=== PATIENT | male | born 1935 | race Caucasian/White ===

== ENCOUNTER 2016-07-13 12:02 | Inpatient (IN) ==
[2016-07-13] MEDS ORDERED: MORPHINE IM ONE (12:43)
[2016-07-13] MEDS ORDERED: NORFLEX IM ONE (12:43)
--- NOTE | 2016-07-13 14:31 | Diag Imaging Result Document ---
PROCEDURE NAME: HEAD/C-SPINE W/O CONTRAST - 07/13/2016 CT OF THE HEAD WITHOUT CONTRAST: FINDINGS: There is some cerebral and cerebellar atrophy. There is an apparent chronic subdural fluid collection on the left which is asymmetric in comparison with the right side, particularly at the convexities. There are no previous studies available for comparison. The paranasal sinuses are clear. The calvarium appears to be intact. IMPRESSION: Left chronic subdural. CT OF THE CERVICAL SPINE: There is some scarring in the apices and apparently an azygos lobe on the right. There is hypertrophic facet disease present at C7-T1 on the right and disk space narrowing at C6-7 with posterior osteophyte formation. There is no prevertebral soft tissue swelling. IMPRESSION: Degenerative changes. No evidence of acute bony disease.
--- NOTE | 2016-07-13 14:33 | Diag Imaging Result Document ---
PROCEDURE NAME: T-SPINE/L-SPINE W/O CONTRAST - 07/13/2016 CT THORACIC AND LUMBAR SPINE WITHOUT: FINDINGS: There is moderate scoliosis to the thoracic spine. Degenerative bone spurring is found throughout. There are acute compression fractures to the T3 and T6 vertebrae. Small avulsed fragment posteriorly at the C3-4 level. There are at least 50% compression fractures to the T8 and T12 vertebrae. These may not be acute. No pleural effusions. No pneumothoraces. There are multiple old rib fractures. IMPRESSION: 1. Acute fractures with mild compression involving the T3 and T6 vertebra with mild spinal stenosis at T3-T4. 2. Likely old compression fractures to the T8 and T12 vertebrae. 3. Scoliosis with prominent degenerative changes. CT LUMBAR SPINE: FINDINGS: There is good alignment to the lumbar spine. Mild compression fracture to the L1 vertebra. This may be old, but could be acute. There is an acute fracture to the transverse process of the L1 vertebra. No other acute fracture. IMPRESSION: Compression of the L1 vertebra with a fracture involving the right transverse process. A preliminary report was called to Samreen Marrufo in the Emergency Room at 2:05 p.m.. MTDD
[2016-07-13 15:14] LABS: MANUAL DIFF NEEDED? NO
[2016-07-13 15:19] LABS: BASO% 0.1 % (0.0-0.8); EOS# 0.06 X1000 (0.0-0.7); EOS% 0.5 % (0.0-10.0); HEMOGLOBIN 16.1 g/dL (14.0-18.0); IMM GRAN# 0.06 X1000 (0.0-0.04); IMM GRAN% 0.5 % (0.0-0.5); LYMPH# 1.06 X1000 (1.2-3.4); LYMPH% 9.3 % (20.5-51.1); MCH 30.9 PG (27-31); MCHC 34.3 g/dL (33-37); MCV 90.2 FL (81-99); MONO# 1.02 X1000 (0.11-0.59); MPV 9.1 FL (7.4-10.4); NEUT% 80.6 % (42.2-75.2); PLT 189 X1000 (130-400); RBC 5.21 XMIL (4.7-6.1)
[2016-07-13 15:46] LABS: AGAP 13; ALKALINE PHOSPHATASE 58 U/L (32-122); BUN 15 mg/dL (8-22); CALCIUM 9.1 mg/dL (8.8-10.2); CHLORIDE 100 mmol/L (98-107); COSMO 274; GOT 27 U/L (10-34); GPT 22 U/L (10-44); POTASSIUM 4.4 mmol/L (3.5-5.1); SODIUM 137 mmol/L (136-145); TCO2 24 mmol/L (25-35); TOTAL BILIRUBIN 0.82 mg/dL (0.20-1.00); TOTAL PROTEIN 6.5 g/dL (6.3-8.3)
[2016-07-13] MEDS ORDERED: APRESOLINE IV PRN (17:23)
[2016-07-13] MEDS: MORPHINE IV PRN ×2 (17:28→21:35)
--- NOTE | 2016-07-13 17:51 | HISTORY AND PHYSICAL ---
PRIMARY CARE PHYSICIAN: [facility] and [facility]. CHIEF COMPLAINT: Fall with back pain. HISTORY OF PRESENT ILLNESS: Mr. De La Cruz is a pleasant 80-year-old male with a history of hypothyroidism, hyperlipidemia, glaucoma and macular degeneration who presents after an acute fall while standing on a chair trying to reach the top shelf in his house. He was reaching as high as he could, and somehow tumbled and fell directly on the flat of his back. He did not lose consciousness, but he states he did hit the back of his head. He was having acute right-sided back pain and came to the hospital for evaluation. He denies any loss of consciousness and denies any preceding presyncope, chest pain or shortness of breath. He denies any abdominal pain, nausea, vomiting, changes in his vision or balance. In the ER, he had a head, cervical spine and thoracic spine CT. Cervical spine and head CT shows a left chronic subdural hematoma which he states is known. C-spine did not show anything acute. The T and L-spine CT did show acute fractures with mild compression involving T3 and T6 vertebra with mild spinal stenosis at T3 through T4. There are likely old compression fractures in the T8 and T12 vertebra and scoliosis with prominent degenerative changes. The L-spine showed compression of the L1 vertebra with a fracture involving the right transverse process. Orthopedics was consulted preadmission and they stated that this was nonsurgical and that we could admit the patient here. Labs were drawn and were unremarkable. His vitals are stable and he is now going to be admitted for further treatment and evaluation. PAST MEDICAL HISTORY: 1. Glaucoma. 2. Macular degeneration. 3. Hypothyroidism. 4. Hyperlipidemia. 5. GERD. PAST SURGICAL HISTORY: None. SOCIAL HISTORY: Patient has a remote history of smoking in his youth. Denies any drug use. He drinks occasional beer. His is at the bedside. FAMILY HISTORY: Significant for myocardial infarction. REVIEW OF SYSTEMS: A 14 point review of systems was obtained and found to be negative with the exception of the HPI. ALLERGIES: No known drug allergies. HOME MEDICATIONS: Aspirin 81 mg daily. Vitamin D 1000 units p.o. daily. Dextrose. Hypromellose eyedrops as directed. Trusopt eye drops as directed. Xalatan eyedrops as directed. Synthroid 50 mcg daily. Mobic 15 mg daily as needed for pain. Robaxin 500 mg b.i.d. Zantac 150 mg p.o. as needed. simvastatin 80 mg daily. Tramadol 50 mg daily. Multivitamin daily. PHYSICAL EXAMINATION: VITAL SIGNS: Blood pressure is 189/76, heart rate is 54, O2 saturations 94% on room air. Temperature is 97.4 degrees. GENERAL: This is an elderly, male, lying in hospital bed in no acute distress. NEUROLOGIC: The patient is awake, alert and oriented. He follows commands without focal deficits. HEENT: Head is atraumatic and normocephalic. Pupils are equal, round, reactive to light. Oral mucosa is moist. Trachea is midline. There is no JVD or carotid bruits. CHEST: Clear to auscultation bilaterally. CARDIOVASCULAR: Regular rate and rhythm, S1-S2 is noted. GI: Soft, nondistended, nontender. Bowel sounds positive. EXTREMITIES: Without edema, clubbing or cyanosis. Pulses palpable in both extremities. DIAGNOSTIC DATA: CT, please see HPI. WBC 11.39, hemoglobin 16.1, hematocrit 47 , platelet count 189,000. Sodium 137, potassium 4.4, chloride 100, CO2 24, creatinine 0.8, glucose 93, LFTs within normal limits. ASSESSMENT AND PLAN: 1. Multilevel thoracic and lumbar spine fractures: This is nonsurgical, we will consult Orthopedics, order Physical Therapy and Social Work consult for possible rehab placement. We will also add pain control. 2. Hypothyroidism: Chronic and stable, continue his home medications and check a thyroid function in the morning. 3. Gastroesophageal reflux disease: Chronic and stable, continue his Zantac. 4. Glaucoma/macular degeneration: Chronic and stable, continue his home eye drops. 5. Chronic subdural: This is obviously chronic and stable, patient states he was notified of it last year getting a routine scan. He exhibits no focal deficits at this time. We will monitor this closely. We are also going to hold off on any aspirin and any anticoagulants in the immediate future. 6. Deep venous thrombosis prophylaxis with Sequential Compression Devices and TEDs. Further recommendations to follow. Dictated by MARIO Quinn for Bernardo Roberts MD cc: MARIO Quinn MD [facility]
[2016-07-13] MEDS ORDERED: PATIENT'S OWN MED PO SCH (17:59)
[2016-07-13] MEDS ORDERED: TEARISOL OPH SOLUTION OPH PRN (17:59)
[2016-07-13] MEDS ORDERED: ZOFRAN IV PRN (17:59)
[2016-07-13] MEDS ORDERED: ZANTAC PO PRN (17:59)
--- NOTE | 2016-07-13 17:59 | PROVIDER DOCUMENTATION ---
This chart was entered by Cierra Mcdermott Scribe, acting as scribe for Samreen Marrufo PA. HPI-Musculoskeletal Pain/Inj - GENERAL Chief Complaint: Fall Stated Complaint: FALL Time Seen by Provider: 07/13/16 12:35 Source: patient - HX OF PRESENT ILLNESS-MUSKULOSKELTAL Nature of Presenting Problem: Pt is 80 y/o M presents to the ED with back pain. Pt states standing on a step stool and lost balance. Pt denies head injury or LOC. Pt states pain from bilateral shoulder blades to lumbar back. Pt denies N/V. Quality of Pain: reports: aching Severity in ED: mild Onset/Duration: just prior to arrival Timing: still present, intermittent Modifying Factors: improves with: nothing Any recent injury?: Yes (fall ) Locality of Occurance: Home Similar Symptoms Previously?: No Recently seen or treated by another doctor?: No - FALL INJURY Location of Pain/Injury: reports: back Pain Radiation: reports: no radiation Reason for Fall: reports: lost balance Symptoms prior to fall:: reports: none Loss of Consciousness: no loss of consciousness Injury Associated Symptoms: reports: back/neck pain (back pain). denies: arm pain, chest pain, diaphoresis, dizziness, headaches, joint pain, muscle aches, nausea, puncture wound, shortness of breath, sensory/motor loss, snap/crack/pop sensation, pain with inspiration, unable to bear weight, vomiting, weakness, trouble walking - BACK & NECK PAIN/INJURY Back/Neck Pain Location: reports: T-spine, lumbar spine Back/Neck Pain Radiation: denies: headache, shoulders, arm(s), Buttocks, Upper Legs, Lower Legs, Feet Context / Method of Injury: reports: fall Associated Symptoms: reports: lower back pain. denies: loss of bladder control , loss of bowel control, fever, muscle spasms, numbness in legs/feet, numbness in upper ext, sensory/motor loss, tingling in legs/feet, tingling in upper ext, weakness in legs/feet, weakness in upper ext History of Chronic Neck or Back Pain?: No Review of Systems - Adult - REVIEW OF SYSTEMS - ADULT Constitutional: reports: no symptoms reported Eyes: reports: no symptoms reported Ears, Nose, Mouth & Throat: reports: no symptoms reported Cardiovascular: reports: irregular heart rate (flores). denies: chest pain, heart murmur Respiratory: reports: no symptoms reported Gastrointestinal: reports: no symptoms reported Genitourinary: reports: no symptoms reported Musculoskeletal: reports: back pain. denies: bone pain, joint pain Integumentary: reports: no symptoms reported Neurological: reports: no symptoms reported Psychiatric: reports: no symptoms reported Endocrine: reports: no symptoms reported Hematologic/Lymphatic: reports: no symptoms reported Allergic/Immunologic: reports: no symptoms reported All Other Systems: Reviewed and Negative Past History - Adult - PAST MEDICAL HISTORY-ADULT Review of Records: reports: Old Records Reviewed, Nursing Assessment Review, Medications Reviewed, Social history reviewed & non-contributory. Major Childhood Illnesses: reports: denies history Cardiovascular: reports: denies history Respiratory: reports: denies history Gastrointestinal: reports: denies history Obstetrical/Gynecological: reports: denies history Genitourinary: reports: denies history Musculoskeletal: reports: denies history Neurological: reports: denies history Endocrine/Immune: reports: denies history Other Conditions: reports: cataract/glaucoma - PRIOR SURGERIES/PROCEDURES Surgical/Procedure History: reports: reviewed, not pertinent - IMMUNIZATION STATUS Childhood Immunizations: See Nurse Assessment Flu Vaccine: See Nurse Assessment - FAMILY HISTORY Family History: reviewed, not pertinent - SOCIAL HISTORY Smoking: denies Substance Use: denies Living Situation: family Physical Exam-Injury Related - Physical Exam-Injury Related Initial Vital Signs Reviewed: Yes General Appearance: appears well, alert, no apparent distress Eyes: PERRL/EOMI, pink conjunctivae Head, Ears, Nose, Mouth & Throat: normocephalic/atraumatic, moist mucous membranes Neck: non-tender, full range of motion, supple, pain on movement. 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) Neurologic: grossly normal, no motor/sensory deficits Psych/Mental Status: normal thought content, normal thought process - Glascow Coma Score Best Eye Response (Court): (4) open spontaneously Best Verbal Response ([place]): (5) oriented Best Motor Response ([place]): (6) obeys commands Court Total: 15 Progress - PLAN OF CARE/RESULTS Progress/Plan/Lab Results: Vital Signs - 8 hr 07/13/16 12:08 Temperature 97.4 F L Pulse Rate 53 L Respiratory Rate 18 Blood Pressure 204/79 O2 Sat by Pulse Oximetry 94 L Laboratory Results - last 24 hr 07/13/16 07/13/16 15:05 15:05 WBC 11.39 H RBC 5.21 Hgb 16.1 Hct 47.0 MCV 90.2 MCH 30.9 MCHC 34.3 RDW Std Deviation 13.3 Plt Count 189 MPV 9.1 Immature Gran % (Auto) 0.5 Neut % (Auto) 80.6 H Lymph % (Auto) 9.3 L Garrard % (Auto) 9.0 Eos % (Auto) 0.5 Baso % (Auto) 0.1 Immature Gran # (Auto) 0.06 H Neut # (Auto) 9.18 H Lymph # (Auto) 1.06 L Garrard # (Auto) 1.02 H Eos # (Auto) 0.06 Baso # (Auto) 0.01 Sodium 137 Potassium 4.4 Chloride 100 Carbon Dioxide 24 L Anion Gap 13 BUN 15 Creatinine 0.8 Estimated GFR/1.73 m2 > 60 BUN/Creatinine Ratio 19 Glucose 93 Calculated Osmolality 274 Calcium 9.1 Total Bilirubin 0.82 AST 27 ALT 22 Alkaline Phosphatase 58 Total Protein 6.5 Albumin 4.0 Globulin 2.5 Albumin/Globulin Ratio 1.6 Orders Category Date Time Status HEAD/C-SPINE W/O CONTRAST [CT] Stat Exams 07/13/16 12:43 Draft T-SPINE/L-SPINE W/O CONTRAST [CT] Stat Exams 07/13/16 12:43 Completed CBC WITH ELECTRONIC DIFF [HEME] Stat Lab 07/13/16 15:05 Completed CMP [COMPREHENSIVE METABOLIC PANEL] [CHEM] Stat Lab 07/13/16 15:05 Completed Morphine Med 07/13/16 12:43 Discontinued 4 mg IM NOW ONE Orphenadrine [Norflex] Med 07/13/16 12:43 Discontinued 60 mg IM NOW ONE Dr. Baker requests lab work prior to discussion for admission at 14:37. Result Diagrams: 07/13/16 15:05 07/13/16 15:05 - REASSESSMENT Reassessment #1 Time Reassessed: 15:45 (declines need for pain meds at this time) Status: unchanged - CT/MRI 1 CT Study: Head, Neck Impression: Normal CT Results: WNL 2 CT Study: Thorax Impression: Abnormal CT Results: acute compression fx T3 and T6 3 CT Study: Lumbar Spine Impression: Abnormal CT Results: L1 with acute compression fx and right transverse process fx - CONSULTS/PCP/HOSPITALIST Notification #1 *Consult/PCP/Hospitalist*: Cec[facility] radiology Time Discussed: 14:07 (acute compression fx T3, T6, and L1. L1 with right transverse process fx.) #2 Consult: Agnieszka Time Discussed: 14:10 (admit to hospitalist, Agnieszka will write orders for bracing and PT once admitted.) #3 Consult: Samuel Time Discussed: 16:09 Consult Disposition: Will see in ED, Admit Departure - Departure Time of Disposition Decision: 14:10 DIAGNOSIS: Compression fracture of first lumbar vertebra Qualifiers: Encounter type: initial encounter Fracture type: closed Qualified Code(s): S32.010A - Wedge compression fracture of first lumbar vertebra, initial encounter for closed fracture Compression fracture of thoracic vertebra Qualifiers: Encounter type: initial encounter Fracture type: closed Qualified Code(s): S22.000A - Wedge compression fracture of unspecified thoracic vertebra, initial encounter for closed fracture Lumbar transverse process fracture Qualifiers: Encounter type: initial encounter Fracture type: closed Qualified Code(s): S32.008A - Other fracture of unspecified lumbar vertebra, initial encounter for closed fracture Disposition: ADMITTED INPATIENT 09 Certified Medical Emergency: Emergent Condition: Stable Referrals and Follow-Ups: None,PCP [Primary Care Provider] - Attestation - Physician/ FINN Attestation Patient care was provided by Advanced Practice Provider:: Yes Advanced Practice Provider:: Samreen Marrufo Advanced Practice Provider documentation review:: The Mid-level provider documentation, treatment plan and medical decision making was reviewed by the physician who agrees with all treatment and medical decision making by the MLP. This chart was documented by the indicated scribe, (Cierra Mcdermott Scribe) and accurately reflects the services I performed and decisions made by , Thiot, Samreen M., PA, as attested by the provider's signature.
[2016-07-13] MEDS: TRUSOPT 2% OPH SOLN RIGHT EYE SCH (20:24)
[2016-07-13] MEDS: ROBAXIN PO SCH (20:24)
[2016-07-13] MEDS: XALATAN 0.005% OPH SOLN BOTH EYES SCH (20:24)
[2016-07-13 22:26] LABS: URINE CULTURE NEEDED? NO; URINE MICRO REVIEW NEEDED? NO; URINE SOURCE CLEAN CATCH
[2016-07-13 22:28] LABS: BILIRUBIN URINE NEGATIVE (NEGATIVE); BLOOD URINE NEGATIVE (NEGATIVE); COLOR YELLOW; GLUCOSE URINE NEGATIVE (NEGATIVE); LEUKOCYTES URINE NEGATIVE (NEGATIVE); NITRITE URINE NEGATIVE (NEGATIVE); PH URINE 6.5; PROTEIN URINE NEGATIVE (NEGATIVE); SP GRAVITY URINE 1.009; TURBIDITY URINE CLEAR (CLEAR); UROBILINOGEN URINE NORMAL (NORMAL)
[2016-07-13 22:32] LABS: UR EPITHELIAL CELLS <10 /HPF (<10); URINE BACTERIA NEGATIVE /HPF; URINE RBC <10 /HPF (<10); URINE WBC <10 /HPF (<10)
[2016-07-14] MEDS: SYNTHROID PO SCH (06:09)
[2016-07-14 06:36] LABS: HEMATOCRIT 46.4 % (42.0-52.0); HEMOGLOBIN 15.6 g/dL (14.0-18.0); MCH 30.8 PG (27-31); MCHC 33.6 g/dL (33-37); MCV 91.7 FL (81-99); MPV 9.2 FL (7.4-10.4); RBC 5.06 XMIL (4.7-6.1)
[2016-07-14 06:57] LABS: AGAP 10; BUN 14 mg/dL (8-22); CALCIUM 8.6 mg/dL (8.8-10.2); CHLORIDE 102 mmol/L (98-107); COSMO 276; HDL 41 mg/dL (35-55); LDL 72 mg/dL; POTASSIUM 4.3 mmol/L (3.5-5.1); SODIUM 138 mmol/L (136-145); TCO2 26 mmol/L (25-35); TRIGLYCERIDES 90 mg/dL (39-160); VLDL 18 mg/dL
[2016-07-14] MEDS: MORPHINE IV PRN ×4 (07:22→21:05)
[2016-07-14] MEDS: VITAMIN D PO SCH ×2 (07:23→08:03)
[2016-07-14] MEDS: ZOCOR PO SCH ×2 (07:23→08:03)
[2016-07-14] MEDS: ROBAXIN PO SCH ×3 (07:24→21:06)
[2016-07-14] MEDS: ULTRAM PO SCH (08:03)
[2016-07-14] MEDS: TRUSOPT 2% OPH SOLN RIGHT EYE SCH ×2 (08:04→21:06)
--- NOTE | 2016-07-14 10:31 | CONSULTATION ---
DATE OF CONSULTATION: 07/14/2016 CHIEF COMPLAINT: Back pain. HISTORY OF PRESENT ILLNESS: Mr. De La Cruz is an 80-year-old male who unfortunately fell yesterday 07/13/2016 and injured himself and presented to the emergency department. Her underwent a CT scan which showed some fractures of his thoracic spine so he was admitted for pain control and physical therapy. Most of his pain is in the back area but it goes from thoracic spine all the down to the lumbar spine. He has had previous back fractures back in 1959 and was treated nonoperatively. He denies any numbness going down the leg. He denies any weakness in his legs as well. PAST MEDICAL HISTORY: Eye problems, reflux. PAST SURGICAL HISTORY: None. SOCIAL HISTORY: He denies any tobacco use. He does drink alcohol occasionally. FAMILY HISTORY: Positive for heart problems. ALLERGIES: No known drug allergies. HOME MEDICATIONS: Aspirin, vitamin D, some eyedrops, Mobic, Zantac, Robaxin, simvastatin, tramadol, and a multiple vitamin. REVIEW OF SYSTEMS: Positive for back pain. All other systems are essentially negative. PHYSICAL EXAMINATION: General: Well-developed, well-nourished male, in no acute distress. HEENT: He has ecchymoses to the right aspect of his face. Cardiovascular: Regular rate. Abdomen: Nondistended. Respirations: Nonlabored. Musculoskeletal Exam: He has some tenderness to palpation to the thoracic spine and a little bit to the low back as well. He has 5/5 strength bilateral lower extremities in all major muscle groups. He has good sensation to light touch to the feet and ankles. He has 2+ DP pulse bilaterally. He is 5/5 strength in all major muscle groups in upper extremities as well with good sensation to light test to all of the fingers. IMAGING: A CT scan of the thoracic and lumbar spine shows some mild compression at T3 and T6 with just a very small bit of spinal stenosis from some degeneration around T3 and T4. He does have some degenerative changes throughout the spine and it looks like some old fractures around T12. ASSESSMENT: Multilevel thoracic fractures. PLAN: I discussed with Mr. De La Cruz about his fractures. I am going to get physical therapy to work with him today. They can give him a TLSO brace. He can be weight bear as tolerated in the brace. Then he will need to follow up with spine and neuro when he is discharged from the hospital. cc: Lalo Aaron MD
[2016-07-14] MEDS: PRINIVIL PO SCH (16:51)
--- NOTE | 2016-07-14 17:20 | PROGRESS NOTE ---
DATE: 07/14/2016 SUBJECTIVE: Today Mr. De La Cruz referred to be doing fine. Denied any neurological symptoms in the lower extremities. Briefly, Mr. De La Cruz is an 80-year-old male who presented yesterday after he tripped on a bench and fell, hitting his back. On presentation, CT scan of the thoracic and lumbar spine did show acute fracture with mild compression involving T3 and T6 with mild stenosis at T3-T4. The patient has been evaluated by Orthopedic Surgery and they recommend nonsurgical intervention. OBJECTIVE: Vital signs: Blood pressure 176/81, pulse 64, respirations 16, temperature 98.2. General: Mr. De La Cruz is an 80-year-old male. He is in bed. He does not have any distress. HEENT: Mucosa is pink and moist. Anicteric. Noncyanotic. Neck: Supple. Chest: Good air entry bilaterally. No crepitation. No rhonchi. Cardiovascular: Regular rate and rhythm. Abdomen: Soft, distended but nontender. Extremities: No pedal edema. AUTO BODY REPAIR ESTIMATOR: The patient is alert and oriented x4. No focal neurological deficits. Specifically in the lower extremities, distal pulses are present. There is no sensory modality loss or any motor deficit. Reflexes are bilaterally normal. LABORATORY DATA: CBC reviewed, completely normal. Chemistries reviewed, completely normal. Vitamin D is 24.8 which is insufficient, but the patient was getting cholecalciferol 1000 units p.o. daily. ASSESSMENT: 1. Status post fall. 2. Multilevel thoracic and lumbar spine fractures. The patient has been evaluation by Orthopedics and nonsurgical intervention has been recommended. I tried to get in touch with Neurosurgery in [place], but they are on diversion, and the lift slab operator will not even put me with them. I think braces will be placed on the patient as per Orthopedics recommendation. The patient has been advised to also follow up with the [facility] in [place]. 3. Hypothyroidism. Stable. 4. Mild vitamin D insufficiency. Will continue his replacement. 5. Hypertension. This is uncontrolled. We are going to add low dose lisinopril to help with blood pressure control. The patient does not seem to be in any remarkable pain, so I do not think this is reactive. cc: Shaun Linares MD [facility]
[2016-07-14] MEDS: XALATAN 0.005% OPH SOLN BOTH EYES SCH (21:07)
[2016-07-15] MEDS: SYNTHROID PO SCH (06:20)
[2016-07-15] MEDS: MORPHINE IV PRN ×4 (06:30→21:42)
[2016-07-15 07:49] LABS: HEMATOCRIT 47.5 % (42.0-52.0); HEMOGLOBIN 16.1 g/dL (14.0-18.0); MCH 31.1 PG (27-31); MCHC 33.9 g/dL (33-37); MCV 91.9 FL (81-99); MPV 9.3 FL (7.4-10.4); RBC 5.17 XMIL (4.7-6.1)
[2016-07-15 07:54] LABS: AGAP 10; BUN 15 mg/dL (8-22); CALCIUM 8.5 mg/dL (8.8-10.2); CHLORIDE 100 mmol/L (98-107); COSMO 274; POTASSIUM 4.7 mmol/L (3.5-5.1); SODIUM 137 mmol/L (136-145); TCO2 27 mmol/L (25-35)
[2016-07-15] MEDS: PRINIVIL PO SCH (08:48)
[2016-07-15] MEDS: ROBAXIN PO SCH ×2 (08:48→20:39)
[2016-07-15] MEDS: ULTRAM PO SCH (08:48)
[2016-07-15] MEDS: ZOCOR PO SCH (08:48)
[2016-07-15] MEDS: VITAMIN D PO SCH (08:48)
[2016-07-15] MEDS: TRUSOPT 2% OPH SOLN RIGHT EYE SCH ×2 (08:49→20:41)
[2016-07-15] MEDS ORDERED: MILK OF MAGNESIA PO ONE (15:49)
--- NOTE | 2016-07-15 15:52 | Diag Imaging Result Document ---
PROCEDURE NAME: ANGIOGRAM/PULMONARY ARTERIES - 07/15/2016 CT CHEST WITH INTRAVENOUS CONTRAST: TECHNIQUE: Dose reduction protocol. FINDINGS: The heart is enlarged. No thoracic aortic aneurysm or dissection. Trace pleural fluid bilaterally. No enlarged mediastinal or hilar lymph nodes. Normal opacification of the pulmonary arteries and their major branches. There is an azygous fissure. This is a normal variant. Mild scoliosis. Minimal increased markings in the lower lungs may simply be atelectasis, although there could be tiny underlying infiltrates. Limited images through the upper abdomen reveal a calcified stone within the gallbladder. IMPRESSION: 1. No pulmonary emboli. 2. Cardiomegaly with trace pleural fluid. 3. Basilar atelectasis although there could be tiny underlying infiltrates. 4. Cholelithiasis. A preliminary report was given at 3:36 p.m.
--- NOTE | 2016-07-15 16:21 | PROGRESS NOTE ---
DATE: 07/15/2016 Today Mr. De La Cruz referred to be doing fine. Has been having some issues with his oxygenation. Per the nursing staff, he went all the way down to the 80s when he tried to stand up. He denies any chest pain. Denies any shortness of breath. Denies any dizziness or any syncopal episode. PHYSICAL EXAMINATION: Blood pressure is 148/68, pulse is 63, respiration is 18, temperature is 98.7. The patient was saturating 92% on 2 L of nasal cannula early this morning. However at about 11:45 it went down to 80.General exam: Mr. De La Cruz is an 80-year-old male. He was in bed. No distress. HEENT: Mucosa is pink and moist. Anicteric. Acyanotic. Neck: Supple. Chest: Air entry is slightly bilaterally reduced with a few bibasilar crepitations. Cardiovascular: Regular rate and rhythm. No murmurs, no rubs. No gallops. Abdomen: Soft, slightly distended but nontender. Bowel sounds are present. Extremities: No pedal edema. LEGAL ASSOCIATE: Patient is alert and oriented x4. There is not any focal neurological deficit. Musculoskeletal: Patient has point tenderness over the over the T3-T6. DIAGNOSTIC STUDIES: A CTA of the lungs we are still pending official report. So far, it does not seem there is any PE but patient does have some infiltrate which I think is probably just some atelectasis. ASSESSMENT: 1. Status post fall. 2. Multi-level thoracic and lumbar spine fracture with T3 and 4 acute. Patient has been evaluated by orthopedics and there is a plan to put braces on him. We are still pending for that to come and hopefully be able to discharge the patient. 3. Hypoxemia unsure of the etiology. However the patient does not seem to have any pneumonia. A CTA at least does not show any PE. Did show a little bit of infiltrate which I think is just atelectasis. I will encourage the patient to do more of incentive spirometer and get aggressive physical toilet and get him to sit up more instead of lying down. Hopefully be able to improve on his oxygen needs and discharge him tomorrow. 4. Hypothyroidism. Stable. 5. Mild vitamin insufficiency. Will continue to replace. 6. Hypertension is better controlled. 7. Constipation. We will treat this symptomatically. GENERAL PLAN: Mr. De La Cruz is relatively stable. We are still pending the braces to stabilize his thoracic spine and we are also working to improve on his oxygenation and hopefully get him discharged tomorrow. cc: Shaun Linares MD
[2016-07-15] MEDS ORDERED: DILAUDID IV ONE ×2 (17:38→17:39)
[2016-07-15] MEDS: XALATAN 0.005% OPH SOLN BOTH EYES SCH (20:41)
[2016-07-16] MEDS: MORPHINE IV PRN ×3 (06:18→14:19)
[2016-07-16] MEDS: SYNTHROID PO SCH (06:18)
[2016-07-16 07:17] LABS: HEMATOCRIT 46.5 % (42.0-52.0); HEMOGLOBIN 15.8 g/dL (14.0-18.0); MCH 31.2 PG (27-31); MCV 91.9 FL (81-99); MPV 8.8 FL (7.4-10.4); RBC 5.06 XMIL (4.7-6.1)
[2016-07-16] MEDS: ULTRAM PO SCH ×2 (07:50→10:16)
[2016-07-16] MEDS: VITAMIN D PO SCH ×2 (07:52→10:15)
[2016-07-16] MEDS: ZOCOR PO SCH ×2 (07:52→10:15)
[2016-07-16] MEDS: ROBAXIN PO SCH ×2 (07:52→10:15)
[2016-07-16] MEDS: PRINIVIL PO SCH ×2 (07:53→10:15)
[2016-07-16] MEDS: TRUSOPT 2% OPH SOLN RIGHT EYE SCH ×2 (07:53→10:15)
[2016-07-16 08:46] VITALS: BP 140/63
[2016-07-16 09:09] LABS: AGAP 15; BUN 16 mg/dL (8-22); CALCIUM 9.2 mg/dL (8.8-10.2); CHLORIDE 98 mmol/L (98-107); COSMO 277; POTASSIUM 5.1 mmol/L (3.5-5.1); SODIUM 138 mmol/L (136-145); TCO2 25 mmol/L (25-35)
[2016-07-16] MEDS ORDERED: NORCO-7.5 PO PRN (11:45)
--- NOTE | 2016-07-16 12:24 | PROGRESS NOTE ---
DATE: 07/16/2016 Today Mr. De La Cruz referred to be doing fine. We were able to get his TLSO braces and he put it on and was able to walk the entire floor with physical therapy. OBJECTIVELY: His vitals blood pressure is 140/63, pulse is 65, respirations 18, temperature is 97.5 degrees.General: Mr. De La Cruz is an 80-year-old male. He is in bed. He did not seem to be in any distress. HEENT: Mucosa is pink and moist. Anicteric. Acyanotic. Neck: Supple. Chest: Clear. Cardiovascular: Regular rate and rhythm. No murmurs, no rubs. No gallops. Abdomen: Soft, distended, but nontender. Extremities: No pedal edema. Musculoskeletal: Continues to be a mild tenderness over the T3 to T6. ASSESSMENT: 1. Status post fall. 2. Multi-level thoracic and lumbar spine fractures with acute T3 and 4. Patient is currently on TLSO braces, tolerating very well. Has been able to walk the whole floor with physical therapy without any problem. 3. Hypoxemia. On the floor CT scan did show atelectasis but there is not any infection and there is not any PE. The patient this morning is doing a whole lot better. He is off the nasal cannula and is saturating very well. 4. Hypothyroidism. Continue with Synthroid. 5. Mild vitamin D insufficiency. We will continue with supplements. 6. Hypertension is controlled. 7. Constipation. Will continue with symptomatic management and also encourage the patient to be mobile. So in general I think Mr. De La Cruz is stable. We will going to discharge him today. He is advised to follow up with Spine Surgery in [place] to review his images and make sure that he if he needs any other intervention they would take care of it. Patient is also advised to follow up with Dr. Aaron and his PCP. cc: Shaun Linares MD
--- NOTE | 2016-07-17 10:57 | DISCHARGE SUMMARY ---
ADMISSION DATE: 07/13/2016 DISCHARGE DATE: 07/16/2016 CONSULTATION: Lalo Aaron MD with Orthopedics. PERTINENT PROCEDURES: Head and cervical spine CT showed degenerative changes. No evidence of acute bony disease. Left chronic subdural. Thoracic lumbar spine CT showed acute fractures with mild compression involving the T3 and T6 vertebrae with mild spinal stenosis at T3-T4, likely old compression fractures to T8 and T12 vertebrae. Scoliosis with prominent degenerative changes. Compression of the L1 vertebra with fracture involving the right transverse process. Pulmonary arteriogram showed no pulmonary emboli. Cardiomegaly with trace pleural effusion and bibasilar atelectasis. Chololithiasis. DISCHARGE DIAGNOSES: 1. Multilevel thoracic and lumbar spine fractures with acute T3 and T4. Status post a fall. Patient currently on a TLSO braces, tolerating very well. He has been able to walk on the floor with Physical Therapy without any problems. 2. [address]. [address] scan did show atelectasis but no signs of infection. Negative for pulmonary embolus. Patient is off nasal cannula and saturating well on room air. 3. Hypothyroidism. Continue Synthroid. 4. Mild vitamin D insufficiency. Continue with supplementation. 5. Hypertension controlled. 6. Constipation. Continue with bowel regimen and encourage mobility. HOSPITAL COURSE: Mr. De La Cruz is an 80-year-old male with a history of hypothyroidism, hyperlipidemia, glaucoma and macular degeneration, presented after an acute fall while standing on a chair trying to reach the top shelf in his house. He was reaching as high as he could and somehow tumbled and fell directly flat on his back. He did not lose consciousness, but he states he did hit the back of his head. He was having an acute right-sided back pain and came to the hospital for evaluation. In the ED, he had a head and cervical spine and thoracic spine CT. Cervical spine and head CT showed a left chronic subdural hematoma, which he states is known. C- spine did not show anything acute. The T and L-spine CT did show acute fractures with mild compression and involving T3 and T6 vertebra with mild spinal stenosis at T3 and T4. There were likely all compression fractures at T8 and T12 vertebra and scoliosis with prominent degenerative changes. The L-spine showed compression of the L1 vertebral with a fracture involving the right transverse process. Orthopaedics was consulted pre-admission and they stated that this was nonsurgical and that we could admit the patient here. Laboratory data was unremarkable. His vital signs were stable. The patient was admitted with a physical therapy consult, as well as social worker masters for possible rehab placement. Patient did work with Physical Therapy. He was given a TLSO brace. He was weightbearing as tolerated in the brace. The patient did have some hypoxemia while admitted. Pulmonary arteriogram did show some atelectasis but no signs of infection. No PE. Patient was actually taken off his nasal cannula. He was able to ambulate the halls. He saturating very well. Patient has been advised by orthopedic as well as Dr. Linares to follow up with a spine surgery at [place] to review his images and to make sure that if he needs any other intervention that they would take care of it. The patient has also been advised to follow up with Dr. Aaron and his primary care physician. VITAL SIGNS: At the time of discharge, temperature is 97.5 degrees, heart rate 65, respirations 18, blood pressure 140/63, O2 93% on room air. DISCHARGE MEDICATION: 1. Aspirin 81 mg p.o. daily. 2. Vitamin D3 1000 units p.o. daily. 3. Trusopt 10 mL as prescribed. 4. [place] 7.5/25 one each p.o. to 6 hours p.r.n. 5. Xalatan 2.5 amounts has directed. 6. Synthroid 50 mcg p.o. daily. 7. Prinivil 5 mg p.o. daily. 8. Robaxin 500 mg p.o. b.i.d. 9. Zantac 150 mg p.o. daily. 10. Simvastatin 80 mg p.o. daily. 11. Tramadol 50 mg p.o. daily. 12. PreserVision AREDS 2 soft gel 1 each p.o. as directed. FOLLOWUP: Patient is being discharged home with TLSO brace. He is to follow up with Dr. Aaron as well as Spine surgery in [place]. He will also follow up with his primary care physician. Patient advised to return to the ED for any worsening of symptoms. TIME SPENT: Discharge time 30 minutes. Dictated by MARIO Lyman for Shaun Linares MD cc: Shaun Linares MD [facility]
== END 2016-07-16 18:06 | disposition home or self-care (01) ==
LOC: ED 12:02 → 3N 17:44 → SUATTDRO 17:44 → 3N 17:53
PROVIDERS: ATTEND Internal Medicine